=== PATIENT | female | born 1965 | race Hispanic/Latino ===

== ENCOUNTER 2023-05-29 11:35 | Inpatient (IN) | payer BC ==
[~2023-05-29] VITALS: Ht 165.1 cm; Wt 140.6 kg
[2023-05-29] MEDS ORDERED: LACTATED RINGERS 1000ML 1,000 ML IV ONE (12:00)
[2023-05-29] MEDS ORDERED: ASPIRIN 325MG TAB PO ONE (12:00)
[2023-05-29 12:10] LABS: BASOPHILS # (AUTO) 0.01 K/uL (0.00-0.20); BASOPHILS % (AUTO) 0.1 % (0.0-5.0); EOSINOPHILS # (AUTO) 0.07 K/uL (0.00-0.70); EOSINOPHILS % (AUTO) 0.6 % (0.0-8.0); HEMATOCRIT 41.7 % (36-48); IMMATURE GRANULOCYTE ABSOLUTE 0.04 K/uL (0-1); LYMPHOCYTES # (AUTO) 1.3 K/uL (1.0-4.8); LYMPHOCYTES % (AUTO) 12.1 % (21.0-51.0); MEAN CORPUSCULAR HEMOGLOBIN 26.7 pg (27.0-33.0); MEAN CORPUSCULAR HGB CONC 32.1 g/dL (32.0-36.0); MEAN CORPUSCULAR VOLUME 83.2 fL (79-99); MONOCYTES # (AUTO) 0.4 K/uL (0.1-1.0); MONOCYTES % (AUTO) 3.6 % (3.0-13.0); NEUTROPHILS # (AUTO) 9.1 K/uL (1.8-7.7); NEUTROPHILS % (AUTO) 83.2 % (40.0-77.0); PLATELET COUNT (AUTO) 204 K/uL (130-400); RED BLOOD CELL COUNT(AUTO) 5.01 MIL/uL (4.00-5.50); RED CELL DISTRIBUTION WIDTH 14.1 % (11.0-15.5)
[2023-05-29 12:21] LABS: INR 0.93 (0.85-1.15); PROTHROMBIN TIME 10.4 SEC (9.6-11.6)
[2023-05-29 12:22] LABS: PARTIAL THROMBOPLASTIN TIME 32.8 SEC (26.3-35.5)
[2023-05-29 12:31] LABS: ALBUMIN 3.3 g/dL (3.5-5.0); CREATININE 0.5 mg/dL (0.5-1.5); MAGNESIUM 1.5 mg/dL (1.80-2.40); POTASSIUM 4.3 mmol/L (3.5-5.1); TOTAL PROTEIN, SERUM 7.5 g/dL (6.0-8.3)
[2023-05-29 12:50] LABS: APPEARANCE,URINE CLOUDY (CLEAR); BILIRUBIN,URINE NEGATIVE (NEGATIVE); COLOR,URINE YELLOW (YELLOW); GLUCOSE, URINE (UA) >=1000 mg/dL (NEGATIVE); KETONES,URINE >=80 mg/dL (NEGATIVE); LEUKOCYTE ESTERASE ,URINE SMALL Leu/uL (NEGATIVE); NITRATE,URINE NEGATIVE (NEGATIVE); OCCULT BLOOD,URINE TRACE-INTACT (NEGATIVE); PROTEIN,URINE NEGATIVE (NEGATIVE); UROBILINOGEN,URINE 0.2 mg/dL (0.2-1.0)
[2023-05-29 12:55] LABS: ADD UA MICROSCOPIC YES
[2023-05-29 12:56] LABS: B-TYPE NATRIURETIC PEPTIDE 8 pg/mL (0-100)
[2023-05-29] MEDS ORDERED: INSULIN HUMULIN R 100 UNIT/ML 3ML IV ONE (13:00)
[2023-05-29 13:31] LABS: SQUAMOUS EPITHELIAL CELL,UR Moderate /HPF (0-2)
[2023-05-29 13:32] LABS: BACTERIA,URINE Moderate /HPF (None Seen)
[2023-05-29 13:36] LABS: YEAST,URINE BUDDING Few /HPF (None Seen)
[2023-05-29 13:37] LABS: WBC,URINE 51-100 /HPF (0-1)
[2023-05-29] MEDS ORDERED: ONDANSETRON 4MG INJ IVP PRN (14:30)
[2023-05-29] MEDS: 0.9%NACL 1000ML 1,000 ML IV SCH (14:45)
[2023-05-29] MEDS: CEFTRIAXONE 1G VIAL IVPB SCH (14:45)
[2023-05-29] MEDS: LOSARTAN 25 MG TABLET PO SCH (14:45)
[2023-05-29 14:59] LABS: HEMOGLOBIN A1C 11.5 % (4.0-6.0)
[2023-05-29] MEDS ORDERED: ATOR10 PO (14:59)
[2023-05-29] MEDS ORDERED: GEMF600T89 PO (14:59)
[2023-05-29] MEDS ORDERED: SAXA1TBM2 PO (14:59)
[2023-05-29] MEDS ORDERED: LOSA25TA41 PO (14:59)
[2023-05-29] MEDS ORDERED: HYDR-3421 PO (14:59)
[2023-05-29] MEDS ORDERED: DULO60CA64 PO (14:59)
[2023-05-29 15:01] LABS: SARS-CoV-2, RNA, NAAT NEGATIVE SARS CoV-2 (NEGATIVE)
[2023-05-29] MEDS: MAGNESIUM 2GM PREMIX 50ML 50 ML IV SCH (15:04)
[2023-05-29] MEDS ORDERED: HYDROXYZINE 25 MG TABLET PO PRN (15:30)
[2023-05-29] MEDS ORDERED: MAGNESIUM 4GM PREMIX 100ML 100 ML IV PRN (15:30)
[2023-05-29 16:01] LABS: ABG OXYGEN SATURATION 45.5 % (95.0-99.0); DEVICE COMMENT VEN; HCO3,VENOUS BLOOD GAS 23.5 (21.0-28.0); PCO2,VENOUS BLOOD GAS 47 (32-45); PH,VENOUS BLOOD GAS 7.316 (7.350-7.450); PO2,VENOUS BLOOD GAS 25.2 mmHg (35.0-45.0); VENT MODE, BG RA (ROOM AIR)
[2023-05-29] MEDS ORDERED: INSULIN HUMULIN R 100 UNIT/ML 3ML SQ SCH (16:30)
[2023-05-29 16:38] VITALS: BP 154/73; PULSE 102; RESP 22
[2023-05-29 16:48] LABS: THYROID STIMULATING HORMONE 0.02 uIU/mL (0.36-3.74)
[2023-05-29] MEDS ORDERED: INSULIN GLARGINE 100 UNITS/ML 10 ML VIAL SQ ONE (17:00)
[2023-05-29 17:02] LABS: CHOLESTEROL 148 mg/dL (<200); HDL CHOLESTEROL 40 mg/dL (35-85); LDL DIRECT 70 mg/dL (0-99); TRIGLYCERIDES 190 mg/dL (30-200)
[2023-05-29 17:03] VITALS: O2SAT 97
[2023-05-29] MEDS: INSULIN HUMULIN R 100 UNIT/ML 3ML SQ SCH (18:04)
[2023-05-29] MEDS ORDERED: POTASSIUM CHLORIDE 20MEQ/100ML 100 ML IV PRN (18:30)
[2023-05-29] MEDS ORDERED: POTASSIUM CHLORIDE 10% ELIXIR 20 MEQ/15 ML UDCUP PO PRN (18:30)
[2023-05-29 19:01] LABS: INFLUENZA TYPE A Negative For Type A (NEGATIVE); INFLUENZA TYPE B Negative For Type B (NEGATIVE)
[2023-05-29 19:10] VITALS: BP_SYST 133; BP_DIAS 65; BP_DIAS 75; PULSE 99; RESP 22
[2023-05-29 20:00] VITALS: O2SAT 97
[2023-05-29] MEDS ORDERED: NON-FORMULARY MEDICATION 1 EACH (Duloxetine HCl 60 MG) PO SCH (21:00)
[2023-05-29 21:53] LABS: CREATININE 0.5 mg/dL (0.5-1.5); MAGNESIUM 1.6 mg/dL (1.80-2.40); POTASSIUM 3.6 mmol/L (3.5-5.1)
[2023-05-29] MEDS: GEMFIBROZIL 600 MG TABLET PO SCH (22:07)
[2023-05-29] MEDS: FAMOTIDINE 20MG VIAL IV SCH (22:07)
[2023-05-29] MEDS: DULOXETINE HCL 30 MG CAP PO SCH (22:07)
[2023-05-30] VITALS (17 sets, daily range): BP systolic 115–162; BP diastolic 47–90; PULSE 86–187; RESP 18–22; O2SAT 95–97
[2023-05-30] MEDS: INSULIN HUMULIN R 100 UNIT/ML 3ML SQ SCH ×7 (00:13→23:27)
[2023-05-30] MEDS: CEFTRIAXONE 1G VIAL IVPB SCH ×2 (02:02→14:02)
[2023-05-30] MEDS ORDERED: IPRATROPIUM 0.5 MG/2.5 ML INH IH STA (03:37)
[2023-05-30] MEDS: 0.9%NACL 1000ML 1,000 ML IV SCH ×2 (03:57→18:02)
[2023-05-30 04:00] LABS: BASOPHILS # (AUTO) 0.02 K/uL (0.00-0.20); BASOPHILS % (AUTO) 0.2 % (0.0-5.0); EOSINOPHILS # (AUTO) 0.14 K/uL (0.00-0.70); EOSINOPHILS % (AUTO) 1.5 % (0.0-8.0); HEMATOCRIT 38.9 % (36-48); IMMATURE GRANULOCYTE ABSOLUTE 0.03 K/uL (0-1); LYMPHOCYTES # (AUTO) 2.2 K/uL (1.0-4.8); LYMPHOCYTES % (AUTO) 23.5 % (21.0-51.0); MEAN CORPUSCULAR HEMOGLOBIN 27.1 pg (27.0-33.0); MEAN CORPUSCULAR HGB CONC 32.6 g/dL (32.0-36.0); MEAN CORPUSCULAR VOLUME 82.9 fL (79-99); MONOCYTES # (AUTO) 0.6 K/uL (0.1-1.0); NEUTROPHILS # (AUTO) 6.2 K/uL (1.8-7.7); NEUTROPHILS % (AUTO) 67.5 % (40.0-77.0); PLATELET COUNT (AUTO) 215 K/uL (130-400); RED BLOOD CELL COUNT(AUTO) 4.69 MIL/uL (4.00-5.50); RED CELL DISTRIBUTION WIDTH 14.2 % (11.0-15.5); WHITE BLOOD COUNT (AUTO) 9.2 K/uL (4.8-10.8)
[2023-05-30 04:34] LABS: ALBUMIN 3.1 g/dL (3.5-5.0); BILIRUBIN,TOTAL 0.8 mg/dL (0.2-1.0); CREATININE 0.5 mg/dL (0.5-1.5); MAGNESIUM 1.7 mg/dL (1.80-2.40)
[2023-05-30] MEDS ORDERED: DILTIAZEM 25MG INJ IVP PRN (08:00)
[2023-05-30] MEDS ORDERED: 0.9% NACL 250ML 250 ML IV STA (08:21)
[2023-05-30] MEDS: MAGNESIUM 2GM PREMIX 50ML 50 ML IV SCH (08:21)
[2023-05-30] MEDS ORDERED: INSULIN GLARGINE 100 UNITS/ML 10 ML VIAL SQ SCH (09:00)
[2023-05-30] MEDS: DULOXETINE HCL 30 MG CAP PO SCH ×2 (09:40→20:37)
[2023-05-30] MEDS: GEMFIBROZIL 600 MG TABLET PO SCH ×2 (09:41→20:36)
[2023-05-30] MEDS: ATORVASTATIN 20 MG TABLET PO SCH (09:41)
[2023-05-30] MEDS: FAMOTIDINE 20MG VIAL IV SCH ×2 (09:42→20:36)
[2023-05-30] MEDS ORDERED: DILTIAZEM 120MG SR CAP PO SCH ×2 (11:30→12:00)
[2023-05-30] MEDS: METHIMAZOLE 10 MG TAB PO SCH (12:00)
[2023-05-30] MEDS: LOSARTAN 25 MG TABLET PO SCH (14:02)
[2023-05-30] MEDS: VERAPAMIL HCL 80 MG TABLET PO SCH ×2 (17:12→20:58)
[2023-05-30] MEDS: ENOXAPARIN SODIUM 40 MG/0.4 ML SYRINGE SQ SCH (20:38)
[2023-05-31] MEDS: INSULIN HUMULIN R 100 UNIT/ML 3ML SQ SCH ×3 (05:00→17:00)
[2023-05-31] MEDS: VERAPAMIL HCL 80 MG TABLET PO SCH ×3 (06:00→22:05)
[2023-05-31 07:00] VITALS: BP 124/47; PULSE 77; RESP 24
[2023-05-31 08:00] VITALS: O2SAT 97
[2023-05-31] MEDS: FAMOTIDINE 20MG VIAL IV SCH ×2 (09:00→20:40)
[2023-05-31] MEDS ORDERED: DILTIAZEM 120MG SR CAP PO SCH ×2 (09:00)
[2023-05-31] MEDS: DULOXETINE HCL 30 MG CAP PO SCH ×2 (09:00→20:39)
[2023-05-31] MEDS: GEMFIBROZIL 600 MG TABLET PO SCH ×2 (09:00→20:40)
[2023-05-31] MEDS: ATORVASTATIN 20 MG TABLET PO SCH (09:00)
[2023-05-31 11:00] VITALS: BP 137/67; PULSE 93; RESP 22
[2023-05-31] MEDS ORDERED: VANCOMYCIN 2GM/500 ML BAG 500 ML IV ONE (11:30)
[2023-05-31] MEDS ORDERED: VANCOMYCIN PROTOCOL PER PHARMACY IV SCH (11:30)
[2023-05-31] MEDS: METHIMAZOLE 10 MG TAB PO SCH (12:20)
[2023-05-31] MEDS: KCL 20 MEQ ERTAB PO PRN (12:21)
[2023-05-31] MEDS: CEFEPIME HCL 2 GM VIAL IVPB SCH ×2 (12:21→20:40)
[2023-05-31] MEDS: LOSARTAN 25 MG TABLET PO SCH (13:15)
[2023-05-31 13:20] LABS: BASOPHILS # (AUTO) 0.01 K/uL (0.00-0.20); BASOPHILS % (AUTO) 0.1 % (0.0-5.0); EOSINOPHILS # (AUTO) 0.13 K/uL (0.00-0.70); EOSINOPHILS % (AUTO) 1.5 % (0.0-8.0); HEMATOCRIT 38.6 % (36-48); IMMATURE GRANULOCYTE ABSOLUTE 0.02 K/uL (0-1); LYMPHOCYTES # (AUTO) 1.8 K/uL (1.0-4.8); LYMPHOCYTES % (AUTO) 21.1 % (21.0-51.0); MEAN CORPUSCULAR HGB CONC 32.1 g/dL (32.0-36.0); MEAN CORPUSCULAR VOLUME 84.1 fL (79-99); MONOCYTES # (AUTO) 0.7 K/uL (0.1-1.0); MONOCYTES % (AUTO) 7.7 % (3.0-13.0); NEUTROPHILS % (AUTO) 69.4 % (40.0-77.0); PLATELET COUNT (AUTO) 197 K/uL (130-400); RED BLOOD CELL COUNT(AUTO) 4.59 MIL/uL (4.00-5.50); RED CELL DISTRIBUTION WIDTH 14.2 % (11.0-15.5); WHITE BLOOD COUNT (AUTO) 8.6 K/uL (4.8-10.8)
[2023-05-31 15:42] LABS: POTASSIUM 3.1 mmol/L (3.5-5.1)
[2023-05-31 15:43] LABS: ALBUMIN 3.1 g/dL (3.5-5.0); BILIRUBIN,TOTAL 0.8 mg/dL (0.2-1.0); CREATININE 0.5 mg/dL (0.5-1.5); MAGNESIUM 1.7 mg/dL (1.80-2.40); TOTAL PROTEIN, SERUM 7.2 g/dL (6.0-8.3)
[2023-05-31 16:00] VITALS: BP 153/68; PULSE 95; RESP 20
[2023-05-31] MEDS ORDERED: INSULIN HUMULIN R 100 UNIT/ML 3ML SQ SCH (17:00)
[2023-05-31 19:10] VITALS: BP 125/61; PULSE 87; RESP 20
[2023-05-31 20:00] VITALS: O2SAT 95
[2023-05-31] MEDS: ENOXAPARIN SODIUM 40 MG/0.4 ML SYRINGE SQ SCH (20:39)
[2023-05-31] MEDS: VANCOMYCIN 1G/250ML KIT 250 ML IV SCH (20:40)
[2023-05-31] MEDS: ACETAMINOPHEN 500 MG TABLET PO PRN (22:05)
[2023-06-01] VITALS (10 sets, daily range): BP systolic 114–147; BP diastolic 44–73; PULSE 65–94; RESP 18–22; O2SAT 95–97
[2023-06-01] MEDS: INSULIN HUMULIN R 100 UNIT/ML 3ML SQ SCH ×8 (00:10→23:00)
[2023-06-01] MEDS: VANCOMYCIN 1G/250ML KIT 250 ML IV SCH ×3 (03:40→21:04)
[2023-06-01] MEDS: CEFEPIME HCL 2 GM VIAL IVPB SCH ×3 (03:40→21:04)
[2023-06-01 03:44] LABS: BASOPHILS # (AUTO) 0.01 K/uL (0.00-0.20); BASOPHILS % (AUTO) 0.1 % (0.0-5.0); EOSINOPHILS % (AUTO) 2.4 % (0.0-8.0); HEMATOCRIT 38.1 % (36-48); IMMATURE GRANULOCYTE ABSOLUTE 0.02 K/uL (0-1); LYMPHOCYTES # (AUTO) 1.7 K/uL (1.0-4.8); LYMPHOCYTES % (AUTO) 20.6 % (21.0-51.0); MEAN CORPUSCULAR HEMOGLOBIN 26.6 pg (27.0-33.0); MEAN CORPUSCULAR HGB CONC 31.8 g/dL (32.0-36.0); MEAN CORPUSCULAR VOLUME 83.7 fL (79-99); MONOCYTES # (AUTO) 0.6 K/uL (0.1-1.0); MONOCYTES % (AUTO) 7.5 % (3.0-13.0); NEUTROPHILS # (AUTO) 5.8 K/uL (1.8-7.7); NEUTROPHILS % (AUTO) 69.2 % (40.0-77.0); PLATELET COUNT (AUTO) 184 K/uL (130-400); RED BLOOD CELL COUNT(AUTO) 4.55 MIL/uL (4.00-5.50); RED CELL DISTRIBUTION WIDTH 14.2 % (11.0-15.5); WHITE BLOOD COUNT (AUTO) 8.3 K/uL (4.8-10.8)
[2023-06-01 04:13] LABS: CREATININE 0.5 mg/dL (0.5-1.5); MAGNESIUM 1.8 mg/dL (1.80-2.40); PHOSPHORUS 3.2 mg/dL (2.5-4.9); POTASSIUM 3.3 mmol/L (3.5-5.1)
[2023-06-01] MEDS: VERAPAMIL HCL 80 MG TABLET PO SCH ×3 (05:01→21:04)
[2023-06-01] MEDS: KCL 20 MEQ ERTAB PO PRN (05:01)
[2023-06-01] MEDS: MAGNESIUM 2GM PREMIX 50ML 50 ML IV SCH (05:02)
[2023-06-01] MEDS: ATORVASTATIN 20 MG TABLET PO SCH (10:09)
[2023-06-01] MEDS: FAMOTIDINE 20MG VIAL IV SCH ×2 (10:09→21:04)
[2023-06-01] MEDS: DULOXETINE HCL 30 MG CAP PO SCH ×2 (10:09→21:04)
[2023-06-01] MEDS: GEMFIBROZIL 600 MG TABLET PO SCH ×2 (10:09→21:04)
[2023-06-01] MEDS: INSULIN GLARGINE 100 UNITS/ML 10 ML VIAL SQ SCH (10:11)
[2023-06-01] MEDS: LOSARTAN 25 MG TABLET PO SCH (14:02)
[2023-06-01] MEDS: METHIMAZOLE 10 MG TAB PO SCH (14:02)
[2023-06-01] MEDS: ENOXAPARIN SODIUM 40 MG/0.4 ML SYRINGE SQ SCH (21:06)
[2023-06-02] VITALS (9 sets, daily range): BP systolic 103–140; BP diastolic 45–99; PULSE 18–90; RESP 18–22; O2SAT 95–96
[2023-06-02] MEDS: CEFEPIME HCL 2 GM VIAL IVPB SCH ×3 (03:20→21:01)
[2023-06-02] MEDS: VANCOMYCIN 1G/250ML KIT 250 ML IV SCH ×3 (03:20→21:01)
[2023-06-02 03:46] LABS: BASOPHILS # (AUTO) 0.01 K/uL (0.00-0.20); BASOPHILS % (AUTO) 0.1 % (0.0-5.0); EOSINOPHILS # (AUTO) 0.13 K/uL (0.00-0.70); EOSINOPHILS % (AUTO) 1.5 % (0.0-8.0); HEMATOCRIT 36.2 % (36-48); IMMATURE GRANULOCYTE ABSOLUTE 0.03 K/uL (0-1); LYMPHOCYTES # (AUTO) 1.8 K/uL (1.0-4.8); LYMPHOCYTES % (AUTO) 20.5 % (21.0-51.0); MEAN CORPUSCULAR HEMOGLOBIN 26.9 pg (27.0-33.0); MEAN CORPUSCULAR HGB CONC 32.9 g/dL (32.0-36.0); MEAN CORPUSCULAR VOLUME 81.9 fL (79-99); MONOCYTES # (AUTO) 0.6 K/uL (0.1-1.0); MONOCYTES % (AUTO) 6.6 % (3.0-13.0); NEUTROPHILS # (AUTO) 6.1 K/uL (1.8-7.7); PLATELET COUNT (AUTO) 206 K/uL (130-400); RED BLOOD CELL COUNT(AUTO) 4.42 MIL/uL (4.00-5.50); WHITE BLOOD COUNT (AUTO) 8.6 K/uL (4.8-10.8)
[2023-06-02 03:47] LABS: CREATININE 0.5 mg/dL (0.5-1.5); POTASSIUM 3.3 mmol/L (3.5-5.1)
[2023-06-02] MEDS: INSULIN HUMULIN R 100 UNIT/ML 3ML SQ SCH ×7 (05:33→23:00)
[2023-06-02] MEDS: VERAPAMIL HCL 80 MG TABLET PO SCH ×3 (05:34→21:00)
[2023-06-02] MEDS: KCL 20 MEQ ERTAB PO PRN (05:34)
[2023-06-02] MEDS: ATORVASTATIN 20 MG TABLET PO SCH (09:18)
[2023-06-02] MEDS: FAMOTIDINE 20MG VIAL IV SCH ×2 (09:18→21:00)
[2023-06-02] MEDS: METHIMAZOLE 10 MG TAB PO SCH (09:18)
[2023-06-02] MEDS: GEMFIBROZIL 600 MG TABLET PO SCH ×2 (09:18→21:00)
[2023-06-02] MEDS: DULOXETINE HCL 30 MG CAP PO SCH ×2 (09:18→20:59)
[2023-06-02] MEDS: INSULIN GLARGINE 100 UNITS/ML 10 ML VIAL SQ SCH (09:33)
[2023-06-02] MEDS: LOSARTAN 25 MG TABLET PO SCH (14:31)
[2023-06-02] MEDS ORDERED: LACTULOSE 20 GM/30 ML UDCUP PO PRN (15:00)
[2023-06-02 18:10] LABS: THYROID-STIMULATING IMMUNOGLOB 0.56 IU/L (0.00-0.55)
[2023-06-02] MEDS: ENOXAPARIN SODIUM 40 MG/0.4 ML SYRINGE SQ SCH (21:00)
[2023-06-03] VITALS (8 sets, daily range): BP systolic 107–161; BP diastolic 37–83; PULSE 83–94; RESP 18–20; O2SAT 96
[2023-06-03] MEDS: CEFEPIME HCL 2 GM VIAL IVPB SCH ×3 (02:24→17:07)
[2023-06-03] MEDS: VANCOMYCIN 1G/250ML KIT 250 ML IV SCH ×4 (02:24→21:16)
[2023-06-03] MEDS: ACETAMINOPHEN 500 MG TABLET PO PRN (02:53)
[2023-06-03 04:39] LABS: BASOPHILS # (AUTO) 0.01 K/uL (0.00-0.20); BASOPHILS % (AUTO) 0.1 % (0.0-5.0); EOSINOPHILS # (AUTO) 0.13 K/uL (0.00-0.70); EOSINOPHILS % (AUTO) 1.5 % (0.0-8.0); HEMATOCRIT 37.3 % (36-48); IMMATURE GRANULOCYTE ABSOLUTE 0.02 K/uL (0-1); LYMPHOCYTES # (AUTO) 1.5 K/uL (1.0-4.8); LYMPHOCYTES % (AUTO) 17.8 % (21.0-51.0); MEAN CORPUSCULAR HEMOGLOBIN 27.1 pg (27.0-33.0); MEAN CORPUSCULAR HGB CONC 32.7 g/dL (32.0-36.0); MEAN CORPUSCULAR VOLUME 82.7 fL (79-99); MONOCYTES # (AUTO) 0.6 K/uL (0.1-1.0); MONOCYTES % (AUTO) 6.5 % (3.0-13.0); NEUTROPHILS # (AUTO) 6.3 K/uL (1.8-7.7); NEUTROPHILS % (AUTO) 73.9 % (40.0-77.0); PLATELET COUNT (AUTO) 203 K/uL (130-400); RED BLOOD CELL COUNT(AUTO) 4.51 MIL/uL (4.00-5.50); WHITE BLOOD COUNT (AUTO) 8.5 K/uL (4.8-10.8)
[2023-06-03 04:49] LABS: CREATININE 0.5 mg/dL (0.5-1.5); POTASSIUM 3.3 mmol/L (3.5-5.1)
[2023-06-03] MEDS: VERAPAMIL HCL 80 MG TABLET PO SCH ×3 (05:17→21:17)
[2023-06-03] MEDS: INSULIN HUMULIN R 100 UNIT/ML 3ML SQ SCH ×6 (05:21→18:51)
[2023-06-03] MEDS: INSULIN GLARGINE 100 UNITS/ML 10 ML VIAL SQ SCH (08:35)
[2023-06-03] MEDS: GEMFIBROZIL 600 MG TABLET PO SCH ×2 (08:43→21:17)
[2023-06-03] MEDS: METHIMAZOLE 10 MG TAB PO SCH (08:43)
[2023-06-03] MEDS: ATORVASTATIN 20 MG TABLET PO SCH (08:43)
[2023-06-03] MEDS: DULOXETINE HCL 30 MG CAP PO SCH ×2 (08:44→21:17)
[2023-06-03] MEDS: FAMOTIDINE 20MG VIAL IV SCH ×2 (08:44→21:17)
[2023-06-03] MEDS ORDERED: COMPOUND IV REFRIGERATED 1 EACH IVSOLN MISC PRN (09:00)
[2023-06-03] MEDS: LOSARTAN 25 MG TABLET PO SCH (14:51)
[2023-06-03] MEDS: ENOXAPARIN SODIUM 40 MG/0.4 ML SYRINGE SQ SCH (21:21)
[2023-06-04] MEDS: INSULIN HUMULIN R 100 UNIT/ML 3ML SQ SCH ×3 (00:43→08:23)
[2023-06-04] MEDS: VANCOMYCIN 1G/250ML KIT 250 ML IV SCH ×2 (02:31→08:33)
[2023-06-04 03:40] VITALS: BP 133/75; PULSE 86; RESP 18
[2023-06-04] MEDS: CEFEPIME HCL 2 GM VIAL IVPB SCH (03:51)
[2023-06-04] MEDS: VERAPAMIL HCL 80 MG TABLET PO SCH (05:53)
[2023-06-04 07:59] VITALS: BP 141/62; PULSE 80; RESP 18
[2023-06-04 08:00] VITALS: O2SAT 98
[2023-06-04] MEDS: DULOXETINE HCL 30 MG CAP PO SCH (08:16)
[2023-06-04] MEDS: FAMOTIDINE 20MG VIAL IV SCH (08:17)
[2023-06-04] MEDS: ATORVASTATIN 20 MG TABLET PO SCH (08:17)
[2023-06-04] MEDS: GEMFIBROZIL 600 MG TABLET PO SCH (08:17)
[2023-06-04] MEDS: METHIMAZOLE 10 MG TAB PO SCH (08:17)
[2023-06-04] MEDS: INSULIN GLARGINE 100 UNITS/ML 10 ML VIAL SQ SCH (08:23)
[2023-06-04] MEDS ORDERED: INSU100I3 SQ (10:03)
[2023-06-04] MEDS ORDERED: VERA80TA11 PO (10:03)
[2023-06-04] MEDS ORDERED: METHI10 PO (10:03)
[2023-06-04] MEDS ORDERED: INSU100V12 SQ (10:03)
[2023-06-04] MEDS ORDERED: LEVO750T68 PO (10:06)
== END 2023-06-04 11:05 | disposition home or self-care (01) | DRG 919 ==
LOC: EDH 11:35 → EDHIP 14:01 → 2DH 15:34
PROVIDERS: ADMIT Internal Medicine; ATTEND Internal Medicine
DX: T85.79XA Infection and inflammatory reaction due to other internal prosthetic devices, implants and grafts, initial encounter (principal); E11.10 Type 2 diabetes mellitus with ketoacidosis without coma; J96.92 Respiratory failure, unspecified with hypercapnia; I47.1 Supraventricular tachycardia; Z68.43 Body mass index [BMI] 50.0-59.9, adult; Z20.822 Contact with and (suspected) exposure to COVID-19; E05.90 Thyrotoxicosis, unspecified without thyrotoxic crisis or storm; E66.01 Morbid (severe) obesity due to excess calories; E86.0 Dehydration; E78.5 Hyperlipidemia, unspecified; I10 Essential (primary) hypertension; E83.42 Hypomagnesemia; I48.91 Unspecified atrial fibrillation; Y83.8 Other surgical procedures as the cause of abnormal reaction of the patient, or of later complication, without mention of misadventure at the time of the procedure; Z79.4 Long term (current) use of insulin; Z82.3 Family history of stroke; Z82.49 Family history of ischemic heart disease and other diseases of the circulatory system; Z91.148 Patient's other noncompliance with medication regimen for other reason; Y92.89 Other specified places as the place of occurrence of the external cause
CPT/HCPCS: 36415; 36600; 71045; 74176; 76536; 80048; 80053; 80061; 80202; 81001; 82010; 82435; 82803; 82947; 82948; 83036; 83605; 83735; 83880; 84100; 84132; 84145; 84295; 84432; 84439; 84443; 84445; 84481; 84482; 84484; 85025; 85378; 85610; 85730; 86140; 86376; 87040; 87070; 87076; 87088; 87635; 87804; 93005; 93306; 93970; 94640; G0378; J0692; J0696; J1650; J1815; J3370; J3475; J3490

== ENCOUNTER → 2023-06-14 | Outpatient (CLI) | payer SELFPAY ==
[~2023-06-14] MED LIST: ATOR10 PO; DULO60CA64 PO; GEMF600T89 PO; HYDR-3421 PO; INSU100I3 SQ; INSU100V12 SQ; LEVO750T68 PO; LOSA25TA41 PO; METHI10 PO; SAXA1TBM2 PO; VERA80TA11 PO
[2023-06-14 16:44] LABS: CREATININE 0.7 mg/dL (0.5-1.5); MAGNESIUM 1.4 mg/dL (1.80-2.40); POTASSIUM 3.8 mmol/L (3.5-5.1)
== END | disposition home or self-care (01) ==
LOC: LAB 10:00
PROVIDERS: ATTEND Internal Medicine Cardiovascular Disease
DX: R00.2 Palpitations (principal)
CPT/HCPCS: 36415; 80048; 83735

== ENCOUNTER 2023-08-19 11:02 | Emergency (ER) | payer BC, SELFPAY ==
[~2023-08-19] VITALS: Ht 165.1 cm; Wt 139.7 kg
[2023-08-19] MEDS ORDERED: LACTATED RINGERS 1000ML 1,000 ML IV ONE ×2 (12:30)
[2023-08-19] MEDS ORDERED: MORPHINE 4 MG SYG IVP ONE (12:30)
[2023-08-19] MEDS ORDERED: ONDANSETRON 4MG INJ IVP ONE (12:30)
[2023-08-19 12:45] LABS: BASOPHILS # (AUTO) 0.01 K/uL (0.00-0.20); BASOPHILS % (AUTO) 0.1 % (0.0-5.0); EOSINOPHILS # (AUTO) 0.37 K/uL (0.00-0.70); EOSINOPHILS % (AUTO) 4.5 % (0.0-8.0); HEMATOCRIT 42.7 % (36-48); IMMATURE GRANULOCYTE ABSOLUTE 0.03 K/uL (0-1); LYMPHOCYTES # (AUTO) 1.2 K/uL (1.0-4.8); MEAN CORPUSCULAR HEMOGLOBIN 27.5 pg (27.0-33.0); MEAN CORPUSCULAR HGB CONC 31.9 g/dL (32.0-36.0); MEAN CORPUSCULAR VOLUME 86.4 fL (79-99); MONOCYTES # (AUTO) 0.3 K/uL (0.1-1.0); NEUTROPHILS # (AUTO) 6.3 K/uL (1.8-7.7); PLATELET COUNT (AUTO) 209 K/uL (130-400); RED BLOOD CELL COUNT(AUTO) 4.94 MIL/uL (4.00-5.50); RED CELL DISTRIBUTION WIDTH 14.4 % (11.0-15.5); WHITE BLOOD COUNT (AUTO) 8.2 K/uL (4.8-10.8)
[2023-08-19 12:59] LABS: CREATININE 0.6 mg/dL (0.5-1.5); POTASSIUM 4.3 mmol/L (3.5-5.1)
[2023-08-19 13:06] LABS: ALBUMIN 3.6 g/dL (3.5-5.0); BILIRUBIN,TOTAL 0.7 mg/dL (0.2-1.0); TOTAL PROTEIN, SERUM 8.1 g/dL (6.0-8.3)
[2023-08-19 13:18] LABS: APPEARANCE,URINE CLEAR (CLEAR); BILIRUBIN,URINE NEGATIVE (NEGATIVE); COLOR,URINE LIGHT-YELLOW (YELLOW); GLUCOSE, URINE (UA) 30 mg/dL (NEGATIVE); KETONES,URINE NEGATIVE (NEGATIVE); LEUKOCYTE ESTERASE ,URINE NEGATIVE Leu/uL (NEGATIVE); NITRATE,URINE NEGATIVE (NEGATIVE); OCCULT BLOOD,URINE NEGATIVE (NEGATIVE); PH,URINE 5.5 (5.0-8.0); PROTEIN,URINE NEGATIVE (NEGATIVE); UROBILINOGEN,URINE 0.2 mg/dL (0.2-1.0)
[2023-08-19 13:23] LABS: ADD UA MICROSCOPIC YES
[2023-08-19 13:24] LABS: MUCUS,URINE RARE LPF (None Seen); SQUAMOUS EPITHELIAL CELL,UR RARE /HPF (0-2)
[2023-08-19] MEDS ORDERED: IOHEXOL 350 MG/ML 100ML INFUS..BTL IV ONE (13:39)
[2023-08-19 17:06] VITALS: BP 133/78; PULSE 78; RESP 18; O2SAT 98
== END 2023-08-19 17:08 | disposition home or self-care (01) ==
LOC: EDH 11:02
DX: R10.9 Unspecified abdominal pain (principal); E27.8 Other specified disorders of adrenal gland; E11.9 Type 2 diabetes mellitus without complications; E78.00 Pure hypercholesterolemia, unspecified; I10 Essential (primary) hypertension; Z79.4 Long term (current) use of insulin; Z79.84 Long term (current) use of oral hypoglycemic drugs; Z79.899 Other long term (current) drug therapy
CPT/HCPCS: 99284; 74178; 71045; 82550; 84484; 80053; 83690; 85025; 81001; 36415; 93005; Q9967